=== PATIENT | female | born 1965 | race Caucasian/White ===

== ENCOUNTER 2021-04-15 22:12 | Emergency (ER) | payer OTHER ==
[2021-04-16 00:33] LABS: BASOPHIL 0 % (0-2); EOSINOPHIL 0 % (0-5); HCT 43.8 % (37.0-47.0); HGB 14.2 g/dl (12.5-16.0); MCH 27.5 pg (25.0-31.0); MCHC 32.4 g/dL (32.0-36.0); MCV 84.7 fL (78.0-100.0); MPV 9.5 fL (6.0-9.5); NEUTROPHIL 77.6 % (41-80); NRBC 0; PLT 143 K/uL (150-400); RBC 5.17 M/uL (4.20-5.40); WBC 2.6 K/uL (4.0-10.5)
[2021-04-16 00:55] LABS: BILIRUBIN - TOTAL 0.6 mg/dL (0.2-1.0); BUN/CREAT RATIO (CALC) 15.9 RATIO; CREATININE 0.63 mg/dL (0.51-0.95); GLOBULIN (CALCULATION) 3.7 g/dL; POTASSIUM 3.7 mmol/L (3.5-5.1); TOTAL PROTEIN 6.7 g/dL (6.4-8.2)
== END 2021-04-16 09:45 | disposition home or self-care (01) ==
LOC: FER 22:12
PROVIDERS: Emergency Medicine
DX: U07.1 COVID-19 (principal); J12.82 Pneumonia due to coronavirus disease 2019; J96.01 Acute respiratory failure with hypoxia; E11.9 Type 2 diabetes mellitus without complications; Z79.84 Long term (current) use of oral hypoglycemic drugs
CPT/HCPCS: 36415; 36600; 71045; 71275; 80053; 82803; 84484; 85025; 85379; 93005; J7030; Q9967